=== PATIENT | female | born 1945 | race Caucasian/White ===

== ENCOUNTER 2016-07-12 19:49 | Observation (INO) ==
[2016-07-12] MEDS ORDERED: Aspirin 81 MG TAB.CHEW PO ONE (19:51)
[2016-07-12 20:11] LABS: Basophils # 0.1 K/mcL (0.0-0.2); Basophils % 1.1 %; Eosinophils # 0.3 K/mcL (0.0-0.6); Eosinophils % 3.1 %; Hematocrit 40.8 % (35.3-44.9); Hemoglobin 13.5 g/dL (11.5-15.4); Immature Granulocytes % 0.2 % (0-4); Lymphocytes # 1.3 K/mcL (0.6-4.6); Lymphocytes % 14.6 %; Mean Corpuscular HGB Conc 33.1 g/dL (31.6-35.5); Mean Corpuscular Volume 87.6 fL (83.0-100.0); Mean Platelet Volume 11.2 fL (9.4-12.4); Monocytes # 0.7 K/mcL (0.0-1.3); Monocytes % 7.8 %; Neutrophils # 6.5 K/mcL (1.6-8.9); Platelet Count 228 K/mcL (140-400); Red Blood Count 4.66 M/mcL (3.82-4.97); Red Cell Distribution Width 14.7 % (11.5-14.5); Segmented Neutrophils % 73.2 %
[2016-07-12 20:28] LABS: Calcium 9.7 mg/dL (8.6-10.8); Potassium 3.7 mEq/L (3.5-4.5)
--- NOTE | 2016-07-12 20:35 | Emergency Department Note ---
Disposition Clinical Impression: Chest pain Disposition: Admitted As Inpatient Condition: Fair Time of Disposition: 22:05 (hitesh godinez) Chest Pain HPI - General Chief Complaint: ED Chest Pain Stated Complaint: LEFT SIDED CHEST PAIN Time Seen by Provider: 07/12/16 19:51 Source: patient Mode of arrival: ambulatory Limitations: no limitations Vital Signs Reviewed: Yes Nursing Notes Reviewed: Yes - History of Present Illness HPI Narrative: Comes in complaining of 2 complaints 1 she had a headache muscle spasm and tension in the neck but #2 that she also has intermittent chest pain with activity denies any blurred vision double vision denies any syncope or diaphoresis nurse's notes have been reviewed patient presents to emergency room is having intermittent chest pain worse with activities as a radiation up into the neck or jaw she states that she has had no nausea vomiting or diaphoresis in addition to this she has been having a headache it has been going on for a couple of days states that she has had no blurred vision or double vision patient states that his occipital radiates into the back of her neck states that the throbbing type headache is not the worst headache of her life states like her typical when she was having elevated blood pressure episodes patient's had multiple Says she does not have a history of an aneurysm Pt complaint: chest pain Onset (ago): week(s) (1-2) Duration: intermittent Onset: during rest, during exertion, after eating, awoke with symptoms Pain Location: substernal Severity: moderate Severity scale (1-10): 7 (headache) Quality: aching Pain Radiation: none Improves with: nothing Worsens with: exertion, inspiration, palpation Associated symptoms: Reports: nausea. Denies: vomiting, diaphoresis, dyspnea, sense of impending doom, syncope, palpitations, fever, cough, leg swelling Treatments prior to arrival chest pain: aspirin, oxygen - Related Data Home Medications Medication Instructions Recorded Confirmed Albuterol Sulfate [Albuterol 2 puff IH QID PRN 11/10/14 07/12/16 Inhaler] Diazepam [Valium] 10 mg PO TID PRN 11/10/14 07/12/16 Omeprazole [PriLOSEC] 20 mg PO DAILY 11/10/14 07/12/16 Aspirin 81 mg PO DAILY 12/11/14 07/12/16 OxyCODONE/APAP 7.5/325 [Percocet 1 each PO Q6H 07/22/15 07/12/16 7.5/325 MG] Amlodipine [Norvasc] 10 mg PO DAILY 01/12/16 07/12/16 Previous Rx's Medication Instructions Recorded Albuterol Neb [Proventil Neb] 2.5 mg IH Q4HR PRN #20 vial.neb 12/27/15 PredniSONE 20 mg PO DAILY #18 tablet 01/12/16 Albuterol Sulfate [Albuterol 2 puff IH Q6HR PRN #1 hfa.aer.ad 04/27/16 Inhaler] HYDROcodone BIT/Homatropine LQ 5 mg PO Q6H PRN #120 ml 04/30/16 [Hycodan Syrup] Allergies Allergy/AdvReac Type Severity Reaction Status Date / Time nalbuphine [From Nubain] AdvReac Anxiety Verified 07/12/16 20:02 promethazine [From Phenergan] AdvReac Anxiety Verified 07/12/16 20:02 All systems ED: reviewed and negative except as stated. Constitutional: Denies: fever, chills, weakness Eyes: Denies: eye pain, eye discharge ENT ED: Denies: ear pain, throat pain, dental pain Cardiovascular: Reports: chest pain. Denies: palpitations, dyspnea on exertion Respiratory: Reports: cough, sputum production. Denies: dyspnea, wheezes Gastrointestinal: Denies: abdominal pain, nausea, vomiting Genitourinary: Denies: urgency, dysuria, frequency Musculoskeletal: Reports: neck pain Integumentary: Denies: abrasion, lesions Neurological: Reports: headache Psychiatric: Denies: anxiety Endocrine: Denies: fatigue Hematological/Lymphatic: Denies: easy bruising Allergic/Immunologic: Denies: urticaria Chest Pain PMH - Past Medical History Medical history: Reports: COPD, CVA, GERD, hyperlipidemia, hypertension, renal disease, TIA Surgical history: Reports: cholecystectomy, hysterectomy Psychiatric history: Reports: anxiety, depression RIDES ATTENDANT history: Reports: no RIDES ATTENDANT history - Social History Smoking Status: Current every day smoker Alcohol use: Reports: none Drug use: Reports: none Physical Exam - General Limitations: no limitations General appearance: alert, in no apparent distress, anxious - Head Head exam: atraumatic, normocephalic, normal inspection - Eye Eye exam: Present: normal appearance, PERRL, EOMI - ENT ENT exam: normal exam, normal oropharynx, mucous membranes moist, normal external ear exam - Neck Neck exam: Present: normal inspection, full ROM, trachea midline. Absent: meningismus - Chest Chest inspection: Present: normal inspection, symmetric chest wall rise - Respiratory Respiratory exam: Present: normal lung sounds bilaterally, wheezes (faint) - Cardiovascular Cardiovascular exam: Present: regular rate, normal rhythm, normal heart sounds - Abdominal Exam Abdominal exam: Present: soft, Non-Tender, normal bowel sounds. Absent: mass, pulsatile mass - Extremities Exam Extremities exam: Present: normal inspection, full ROM, normal capillary refill. Absent: tenderness, joint swelling - Expanded Lower Extremity Exam Neurovascular/Tendon exam: Present: normal capillary refill, normal fine/light touch Gait: observed and normal - Back Exam Back exam: Present: normal inspection, full ROM, muscle spasm, paraspinal tenderness. Absent: tenderness, vertebral tenderness - Neurological Exam Neurological exam: Present: alert, oriented X3, CN II-XII intact - Psychiatric Psychiatric exam: Present: anxious - Skin Skin exam: Present: warm, dry, intact, normal color Course Course Narrative: Patient is seen and examined patient was given a pain shot for her headache and actually stated that the pain was just there to be a nuisance but she rated as a 7 after having an injection patient is resting comfortably she is not coughing or wheezing she is having no difficulty swallowing she lists Nubain and promethazine as an allergy but she has had these in the past for her headaches and was okay with receiving those today as a result allergy is probably more was an adverse reaction at one time but she has had no reaction or symptomatology with that at this time patient admitted for observation as resulting intermittent chest pain with her history of hypertensive disease Vital Signs Temperature 98.7 F 07/12/16 20:13 Pulse Rate 95 07/12/16 20:13 Respiratory Rate 20 07/12/16 20:13 Blood Pressure 133/103 07/12/16 20:13 O2 Sat by Pulse Oximetry 96 07/12/16 20:13 Temperature 98.7 F 07/12/16 20:13 Pulse Rate 88 07/12/16 21:49 Respiratory Rate 28 07/12/16 21:49 Blood Pressure 133/97 07/12/16 21:49 O2 Sat by Pulse Oximetry 94 07/12/16 21:49 Oxygen Delivery Oxygen Delivery Room Air Chest Pain - MDM Narrative Medical decision making narrative: HTN emergency /crisis copd migraine chest pain angina - Differential Diagnosis Likely: unstable angina pectoris, atypical chest pain, chest pain - Lab Data Lab results reviewed: Yes I reviewed the patient's lab results. Result diagrams: 07/12/16 20:03 07/12/16 20:03 Lab Results 07/12/16 07/12/16 07/12/16 Range/Units 20:03 20:03 20:03 WBC 8.9 (4.3-11.1) K/mcL RBC 4.66 (3.82-4.97) M/mcL Hgb 13.5 (11.5-15.4) g/dL Hct 40.8 (35.3-44.9) % MCV 87.6 (83.0-100.0) fL MCH 29.0 (28.0-33.3) pg MCHC 33.1 (31.6-35.5) g/dL RDW 14.7 H (11.5-14.5) % Plt Count 228 (140-400) K/mcL MPV 11.2 (9.4-12.4) fL Immature Gran % 0.2 (0-4) % Seg Neutrophils % 73.2 % Lymphocytes % 14.6 % Monocytes % 7.8 % Eosinophils % 3.1 % Basophils % 1.1 % Neutrophils # 6.5 (1.6-8.9) K/mcL Lymphocytes # 1.3 (0.6-4.6) K/mcL Monocytes # 0.7 (0.0-1.3) K/mcL Eosinophils # 0.3 (0.0-0.6) K/mcL Basophils # 0.1 (0.0-0.2) K/mcL Sodium 145 (136-145) mEq/L Potassium 3.7 (3.5-4.5) mEq/L Chloride 108 (98-109) mEq/L Carbon Dioxide 24 (19-29) mEq/L BUN 17 (7-20) mg/dL Creatinine 1.21 H (0.57-1.11) mg/dL Est GFR ( Amer) 53 L (> 60) Est GFR (Non-Af Amer) 44 L (> 60) BUN/Creatinine Ratio 14 (6-26) Glucose 103 H (70-99) mg/dL Calculated Osmolality 302 H (280-300) Calcium 9.7 (8.6-10.8) mg/dL Troponin I 0.01 (0-0.03) ng/mL - Radiology Data Radiology results reviewed: Yes I reviewed the patient's radiology results. ITS Impressions Chest X-Ray 07/12/16 19:51 IMPRESSION: No evidence of acute cardiopulmonary disease. D/ / Gabriel Caballero MD / Gabriel Caballero MD Interpreting Provider: Gabriel Caballero MD - EKG Data EKG attestation: Yes I reviewed and interpreted this EKG. EKG results narrative: ITS Impressions Chest X-Ray 07/12/16 19:51 IMPRESSION: No evidence of acute cardiopulmonary disease. D/ / Gabriel Caballero MD / Gabriel Caballero MD Interpreting Provider: Gabriel Caballero MD Heart Score - Score History: Slightly Suspicious EKG: Non Specific repolarisation Disturbance Age: Greater than 65 Risk Factors: 1-2 risk factors Troponin: Less than normal limit HEART Score Total: 4 Critical Care Time Critical Care Time: No
[2016-07-12] MEDS ORDERED: Orphenadrine 60 MG/2 ML VIAL IM ONE (21:32)
[2016-07-12] MEDS ORDERED: *HR* Nalbuphine 20 MG/ML AMPUL IM STA (21:32)
[2016-07-12] MEDS ORDERED: *HR* Promethazine 25 MG/ML VIAL IVP ONE (21:32)
[2016-07-12] MEDS ORDERED: HYDROcodone BIT/Homatropine LQ 5 MG/5 ML UDC PO PRN (23:02)
[2016-07-12] MEDS ORDERED: Naloxone 0.4 MG/ML INJ IVP PRN (23:02)
[2016-07-12] MEDS ORDERED: Ondansetron ODT 4 MG TAB.RAPDIS SL PRN (23:02)
[2016-07-12] MEDS: *HR* OxyCODONE/APAP 7.5/325 TABLET PO SCH (23:35)
[2016-07-12] MEDS: Albuterol 2.5 MG/3 ML NEBULIZER IH SCH ×3 (23:56→23:58)
[2016-07-13 02:27] LABS: INR 1.1; Prothrombin Time 11.9 Seconds (9.4-12.1)
[2016-07-13 02:29] LABS: Activated Partial Thrombo Time 31.1 Seconds (26.0-36.0)
[2016-07-13 02:37] LABS: Calcium 9.5 mg/dL (8.6-10.8); Potassium 3.7 mEq/L (3.5-4.5)
[2016-07-13] MEDS: Albuterol 2.5 MG/3 ML NEBULIZER IH SCH ×4 (03:46→13:00)
[2016-07-13] MEDS: *HR* OxyCODONE/APAP 7.5/325 TABLET PO SCH ×2 (05:37→13:08)
--- NOTE | 2016-07-13 07:10 | Electrocardiograph Report ---
[address] [address] Test Date: 2016-07-12 Pat Name: Eleanor Chung Department: [id number] Room: [facility] Gender: F Transport Coordinator: [id number] : 1945 Requested By: Anthony Harden Order Number: [id number] Reading MD: Hugo Weiss MD Measurements Intervals Adams Rate: 93 P: 54 ND: 168 QRS: -23 QRSD: 88 T: 78 QT: 366 QTc: 417 Interpretive Statements SINUS RHYTHM BORDERLINE LEFT AXIS DEVIATION Electronically Signed On 07-13-2016 7:08:25 EDT by Hugo Weiss MD
[2016-07-13] MEDS ORDERED: Aspirin 81 MG TAB.CHEW PO SCH (09:00)
[2016-07-13] MEDS ORDERED: PredniSONE 20 MG TABLET PO SCH (09:00)
--- NOTE | 2016-07-13 11:00 | Internal Med History&Physical ---
Date of Encounter: 07/13/16 Time of Encounter: 10:30 Assessment and Plan (1) Chest pain Current visit: Yes Status: Acute Doubt cardiac origin. Repeat troponins have been ordered through emergency room. I will order a d-dimer. Further workup will be done as needed. Qualifiers: Chest pain type: unspecified Qualified Code(s): R07.9 - Chest pain, unspecified (2) CKD (chronic kidney disease) stage 3, GFR 30-59 ml/min Current visit: Yes Status: Acute Renal indices are stable. (3) HTN (hypertension) Current visit: No Status: Chronic Blood pressure is improved significantly since emergency room. Continue Norvasc. Qualifiers: Hypertension type: essential hypertension Qualified Code(s): I10 - Essential (primary) hypertension (4) Lung nodule < 6cm on CT Current visit: No Status: Acute She had a 5 mm right upper lobe nodule seen on January [address] in 6 months was recommended. Internal Medicine - H&P: HPI Chief complaint: Chest pain Admitted From: Home Plans for Post Hospital Care: Home History of present illness: Ms. Chung is a 71 year old female who came to emergency room stating she had sudden onset of chest pain with dyspnea while doing light work at home. She reports she was raising up from a bent position and had the symptoms abruptly occur along with feeling lightheaded. She sat down to avoid falling. She took 5 baby aspirin for the chest pain with minimal relief. She later took a dose of Percocet as scheduled but the pain persisted. She came to emergency room and was evaluated and was admitted to [facility] floor for ongoing care needs. She describes the pain at level 8-9/10 at onset. There was no cough but significant dyspnea as per above. She denies other symptoms. She reports she had a previous similar pain intermittently over the past 2 years that was less severe. Her most recent episode was approximately 6 months ago. Her cardiovascular history is significant for hypertension. She had an echocardiogram January 2013 with LVEF of 60-65% and moderate diastolic dysfunction. There was mild to moderate TR but no other significant valvular abnormalities. She is uncertain if she has had an IA. She denies DVT or pulmonary embolus. She has Regadenoson stress test 02/22/2016 which showed no EKG or perfusion evidence of ischemia or infarct. The LVEF was greater than 70% . Past Med Surg Social Fam HX - Past Medical History Medical history: COPD, CVA, GERD, hyperlipidemia, hypertension, renal disease, TIA Psychiatric history: anxiety, depression - Past Surgical History Surgical History: cholecystectomy, hysterectomy - Social History Smoking Status: Current every day smoker Packs per day: half a pack Smokeless Tobacco Status: No Alcohol use: none Drug use: none - Family History Mother Adopted: No Family Member Ethnicity: Non- Living Status: Hx Family Cardiac Disorders: Yes (IA) Hx Family Respiratory Disorders: No Hx Family Cancer: Yes (Uterine cancer) Hx Family GI Disorders: Yes (Acid Reflux) Hx Family Endocrine Disorder: Yes (DM) Hx Family Neuromuscular Disorders: No Hx Family Neurologic Disorders: No Hx Family HEENT Disorders: No Hx Family Autoimmune Disorders: No Internal Medicine - H&P: Meds Albuterol Sulfate [Albuterol Inhaler] 2 puff IH QID PRN 11/10/14 [History] Diazepam [Valium] 10 mg PO TID PRN 11/10/14 [History] Omeprazole [PriLOSEC] 20 mg PO DAILY 11/10/14 [History] Aspirin 81 mg PO DAILY 12/11/14 [History] OxyCODONE/APAP 7.5/325 [Percocet 7.5/325 MG] 1 each PO Q6H 07/22/15 [History] Albuterol Neb [Proventil Neb] 2.5 mg IH Q4HR PRN #20 vial.neb 12/27/15 [Rx] Amlodipine [Norvasc] 10 mg PO DAILY 01/12/16 [History] PredniSONE 20 mg PO DAILY #18 tablet 01/12/16 [Rx] Albuterol Sulfate [Albuterol Inhaler] 2 puff IH Q6HR PRN #1 hfa.aer.ad 04/27/16 [Rx] HYDROcodone BIT/Homatropine LQ [Hycodan Syrup] 5 mg PO Q6H PRN #120 ml 04/30/16 [Rx] Allergies nalbuphine [From Nubain] Adverse Reaction (Verified 07/12/16 20:02) Anxiety promethazine [From Phenergan] Adverse Reaction (Verified 07/12/16 20:02) Anxiety All Systems PM: A 10-system review of systems was performed and is negative for pertinent findings except as documented above in the HPI. Review of systems: Gen.: Her weight has increased from 89.811 kg at September 2014 [facility] hospitalization to 96.615 kg at present. Cardiovascular: As per history of present illness Respiratory: She has smoked since age 11 up to 2 packs per day. She has not had PFTs and does not wear home oxygen and has not been tested for sleep apnea. GI: She has had GERD and cholecystectomy. She denies disorders with her liver or exocrine pancreas. : She denies hematuria dysuria or kidney stones. She has CKD stage III but has not seen a full service supervisor in over a year Neurologic: She claims she has had multiple lacunar strokes in the past with earlier ones causing temporary right leg impairment that is now improved. She does not typically use a cane or walker. She denies seizures Endocrine: She was diagnosed with DM 2 in the past but states it is now diet- controlled. She has hyperlipidemia but no known thyroid disease Hematology/oncology: She denies blood disorders cancers or anemia Psychiatric: She has anxiety and depression but no other mental health issues. - Constitutional Vitals: Temp Pulse Resp BP Pulse Ox 98.3 F 99 20 109/61 94 07/13/16 06:34 07/13/16 06:34 07/13/16 08:34 07/13/16 06:34 07/13/16 08:34 Exam: General: She is a well-developed well-nourished female who appears in no acute distress at present time HEENT: Head is atraumatic and normocephalic. Eyes: EOMI. There is no scleral icterus. Mouth: Mucosa is moist. Neck: Supple and nontender. There is no thyromegaly or adenopathy noted. Heart: Regular without murmurs gallops or ectopics Chest: She is minimally tender chest wall to palpation. She states compression of the chest wall does not reproduce the pain she had at home Lungs: Clear to auscultation in all eduardo Abdomen: Soft and nontender. No masses or guarding are noted. Extremities: Dorsalis pedis and posttibial pulses are 1-2 over 2 bilaterally. Her lower legs are wrapped in gauze which I did not unwrap. She has psoriasis on her left forearm. She reports she has psoriasis on her legs under the gauze wrap. Neurologic: Mental status: She is talkative and a good historian. Cranial nerves: Smile is symmetric. Forehead wrinkles bilaterally. Tongue protrudes midline. EOMI. Motor: There is no pronator drift. Cerebellar: Finger to nose is intact bilaterally. Skin: Warm and dry. She has psoriasis as described above. Internal Med - H&P Results - Labs CBC & Chem 7: 07/12/16 20:03 07/13/16 02:10 Labs: BMP 07/13/16 02:10 Sodium 146 H Potassium 3.7 Chloride 109 Carbon Dioxide 24 BUN 21 H Creatinine 1.20 H Glucose 152 H Calcium 9.5 Cardiac Enzymes 07/13/16 07/13/16 Range/Units 02:10 08:15 Troponin I 0.01 0.01 (0-0.03) ng/mL - VTE Documentation of Mechanical Device: Intermittent pneumatic compression device
[2016-07-13] MEDS ORDERED: Nicotine 21 MG PATCH.TD24 TD SCH (11:30)
[2016-07-13 14:10] VITALS: BP 101/62
--- NOTE | 2016-07-13 14:19 | Discharge Summary ---
Date of Encounter: 07/13/16 Time of Encounter: 14:10 - Discharge Diagnosis (1) Chest pain Priority: Primary Status: Acute Qualifiers: Chest pain type: unspecified Qualified Code(s): R07.9 - Chest pain, unspecified (2) CKD (chronic kidney disease) stage 3, GFR 30-59 ml/min Priority: Secondary Status: Acute (3) HTN (hypertension) Priority: Secondary Status: Chronic Qualifiers: Hypertension type: essential hypertension Qualified Code(s): I10 - Essential (primary) hypertension (4) Lung nodule < 6cm on CT Priority: Secondary Status: Acute - Discharge Medications Home Medications: Albuterol Sulfate [Albuterol Inhaler] 2 puff IH QID PRN 11/10/14 [History] Diazepam [Valium] 10 mg PO TID PRN 11/10/14 [History] Omeprazole [PriLOSEC] 20 mg PO DAILY 11/10/14 [History] Aspirin 81 mg PO DAILY 12/11/14 [History] OxyCODONE/APAP 7.5/325 [Percocet 7.5/325 MG] 1 each PO Q6H 07/22/15 [History] Albuterol Neb [Proventil Neb] 2.5 mg IH Q4HR PRN #20 vial.neb 12/27/15 [Rx] Amlodipine [Norvasc] 10 mg PO DAILY 01/12/16 [History] PredniSONE 20 mg PO DAILY #18 tablet 01/12/16 [Rx] Albuterol Sulfate [Albuterol Inhaler] 2 puff IH Q6HR PRN #1 hfa.aer.ad 04/27/16 [Rx] HYDROcodone BIT/Homatropine LQ [Hycodan Syrup] 5 mg PO Q6H PRN #120 ml 04/30/16 [Rx] Allergies/Adverse Reactions: Allergies nalbuphine [From Nubain] Adverse Reaction (Verified 07/12/16 20:02) Anxiety promethazine [From Phenergan] Adverse Reaction (Verified 07/12/16 20:02) Anxiety Procedures/tests Complete & Pending: Procedures Performed prior 72 hours Category Date Time Status CT chest wo con [CT] Routine Cat Scan 07/13/16 12:28 Completed Date of admission: 07/12/16 22:06 Primary care physician: Venessa Vaughn - Patient Status Disposition: Home, Self-Care Condition: Fair Functional capacity at discharge: independent ambulation Overall status at discharge: patient is progressing back to baseline - Discharge Instructions Follow Up With: Venessa Vaughn [Primary Care Provider] - - Diet and Activity Activity: resume usual activities as tolerated Diet: advance to your usual diet Hospital course: Ms. Chung is a 71 year old female who came to emergency room stating she had sudden onset of chest pain with dyspnea while doing light work at home. She reports she was raising up from a bent position and had the symptoms abruptly occur along with feeling lightheaded. She sat down to avoid falling. She took 5 baby aspirin for the chest pain with minimal relief. She later took a dose of Percocet as scheduled but the pain persisted. She came to emergency room and was evaluated and was admitted to [facility] for ongoing care needs. Initial orders were written by the emergency room physician. I saw her on July 13 and performed a history and physical. Repeat cardiac enzymes showed no evidence of myocardial damage. A d-dimer was drawn with result of 624 which is within age-adjusted normal. I felt it was low likelihood she had DVT/PE. The etiology of her chest pain was not determined with certainty. A noncontrast chest CT was done to follow-up on previously seen right upper lobe nodule on a January [address] The nodule was unchanged at [address] was recommended in 12 months. There was no other significant pathology found on chest CT. She felt stable for discharge home which I felt was reasonable. She will follow with her PCP within one week. I encouraged her to discontinue smoking. Room air oximetry will be checked prior to discharge on a 6 minute walk. - Time Spent with Patient Total time spent providing and/or coordinating discharge services: - Constitutional Vitals: Temp Pulse Resp BP Pulse Ox 98.5 F 86 24 101/62 93 07/13/16 14:05 07/13/16 14:05 07/13/16 14:05 07/13/16 14:05 07/13/16 14:05 - VTE Documentation of Mechanical Device: Intermittent pneumatic compression device
== END 2016-07-13 15:05 | disposition home or self-care (01) ==
LOC: INPPIK 19:49 → EMEROOPIK 19:49 → INPPIK 23:00
PROVIDERS: ADMIT Internal Medicine; ATTEND Internal Medicine

== ENCOUNTER 2017-03-23 15:43 | Observation (INO) ==
[2017-03-23] MEDS ORDERED: Ketorolac 30 MG/ML VIAL IVP ONE (16:09)
[2017-03-23] MEDS ORDERED: 0.9 % Sodium Chloride 1,000 ML IVC ONE (16:09)
[2017-03-23] MEDS ORDERED: Ondansetron 4 MG/2 ML VIAL IVP ONE (16:09)
--- NOTE | 2017-03-23 16:12 | Emergency Department Note ---
Disposition Clinical Impression: COPD exacerbation, Influenza B Disposition: Admitted As Inpatient Time of Disposition: 19:00 URI/Sore Throat HPI - General Chief Complaint: ED Arrhythmia/Palpitations Stated Complaint: heart racing/ chest pressure / weak /N/V/D Time Seen by Provider: 03/23/17 16:05 Source: patient Mode of arrival: ambulatory Limitations: no limitations Nursing Notes Reviewed: Yes Vital Signs Reviewed: Yes - History of Present Illness HPI Narrative: 72-year-old female has been sick for 3-4 days. She states she has had a cough with chest discomfort. She is aching all over. She was seen here 3 days ago and was diagnosed with bronchitis/upper respiratory tract infection. She states that the medicine she was put on gave her diarrhea, she has had multiple episodes of diarrhea since being discharged. She has been nauseated, she vomited once or twice. She continues to cough. She feels sore all over, achy. No documented fever. At time she feels like her heart racing. Pt Subjective Complaint: cough, flu symptoms Onset (ago): day(s) Duration: constant (3) Severity: severe Improves with: nothing Worsens with: nothing If sputum, description: other Context: multiple patients with similar complaints (None) Associated symptoms: Reports: denies other symptoms Treatments prior to arrival: other healthcare encounter for this problem - Related Data Home Medications Medication Instructions Recorded Confirmed Omeprazole [PriLOSEC] 20 mg PO DAILY 11/10/14 03/23/17 Aspirin 81 mg PO DAILY 12/11/14 03/23/17 OxyCODONE/APAP 7.5/325 [Percocet 1 each PO Q6H 07/22/15 03/23/17 7.5/325 MG] amLODIPine [Norvasc] 10 mg PO DAILY 01/12/16 03/23/17 Previous Rx's Medication Instructions Recorded Albuterol Neb [Proventil Neb] 2.5 mg IH Q4HR PRN #20 vial.neb 12/27/15 Albuterol Sulfate [Albuterol 2 puff IH Q6HR PRN #1 hfa.aer.ad 04/27/16 Inhaler] Amoxicillin/Clavulanate [Augmentin] 875 mg PO BIDWM #20 tablet 03/21/17 Brompheniramine/Pseudoephed/Dm 5 ml PO Q4-6H PRN #120 syrup 03/21/17 [Bromfed Dm Cough Syrup] Allergies Allergy/AdvReac Type Severity Reaction Status Date / Time No Known Allergies Allergy Verified 03/23/17 15:44 All systems ED: reviewed and negative except as stated. Constitutional: Reports: chills. Denies: fever Eyes: Denies: eye discharge ENT ED: Denies: ear pain, throat pain Cardiovascular: Reports: chest pain Respiratory: Reports: cough (With coughing), dyspnea. Denies: sputum production Gastrointestinal: Reports: nausea, vomiting, diarrhea. Denies: abdominal pain Genitourinary: Denies: urgency, dysuria, frequency Musculoskeletal: Reports: arthralgia, myalgia. Denies: back pain Integumentary: Denies: rash Neurological: Reports: weakness. Denies: numbness, paresthesias URI PMH - Past Medical History Medical history: Reports: COPD, CVA, GERD, hyperlipidemia, hypertension, renal disease, TIA, other Surgical history: Reports: cholecystectomy, hysterectomy Psychiatric history: Reports: anxiety, depression ENVIRONMENTAL FIELD PROFESSIONAL history: Reports: no ENVIRONMENTAL FIELD PROFESSIONAL history - Social History Smoking Status: Current every day smoker Alcohol use: Reports: none Drug use: Reports: none Physical Exam - General Limitations: no limitations General appearance: alert, anxious - Head Head exam: atraumatic, normocephalic - Eye Eye exam: Present: PERRL, EOMI. Absent: scleral icterus, conjunctival injection - ENT ENT exam: normal oropharynx, mucous membranes moist, TM's normal bilaterally - Neck Neck exam: Present: normal inspection, full ROM, trachea midline. Absent: tenderness, lymphadenopathy - Chest Chest inspection: Present: normal inspection, symmetric chest wall rise - Respiratory Respiratory exam: Present: wheezes (Rare expiratory). Absent: respiratory distress, accessory muscle use, prolonged expiratory phase - Cardiovascular Cardiovascular exam: Present: regular rate, normal rhythm, normal heart sounds - Abdominal Exam Abdominal exam: Present: soft, Non-Tender, normal bowel sounds. Absent: organomegaly, mass - Extremities Exam Extremities exam: Present: normal inspection, full ROM, normal capillary refill. Absent: pedal edema, calf tenderness - Back Exam Back exam: Absent: CVA tenderness (R), CVA tenderness (L) - Neurological Exam Neurological exam: Present: alert, oriented X3. Absent: motor sensory deficit - Psychiatric Psychiatric exam: Present: normal affect, normal mood - Skin Skin exam: Present: warm, dry, intact, normal color. Absent: cyanosis, diaphoresis Course - Reevaluation(s) Reevaluation #1: Discussed with Dr. Ness. Accepts admission. Time: 18:00 Vital Signs Temperature 98.0 F 03/23/17 15:46 Pulse Rate 100 03/23/17 15:46 Respiratory Rate 20 03/23/17 15:46 Blood Pressure 154/90 03/23/17 15:46 O2 Sat by Pulse Oximetry 98 03/23/17 15:46 Temperature 98.7 F 03/23/17 18:53 Pulse Rate 106 03/23/17 18:53 Respiratory Rate 24 03/23/17 18:53 Blood Pressure 118/78 03/23/17 18:53 O2 Sat by Pulse Oximetry 91 03/23/17 18:53 Oxygen Delivery Oxygen Delivery Nasal Cannula Upper Respiratory Infection - MDM Narrative Medical decision making narrative: Patient has a COPD exacerbation associated with influenza B. Her O2 saturations are dropping down to 88-89% especially with paroxysms of coughing. She has been given Solu-Medrol and hand-held nebulizers. No evidence of pneumonia on her chest x-ray. - Differential Diagnosis Differential Diagnosis: Likely: upper respiratory infection, sinusitis, other viral infection, bronchitis, pharyngitis, pneumonia - Lab Data Lab results reviewed: Yes I reviewed the patient's lab results. Result diagrams: 03/23/17 16:16 03/23/17 16:16 Lab Results 03/23/17 03/23/17 03/23/17 Range/Units 16:16 16:16 16:16 WBC 4.6 (4.3-11.1) K/mcL RBC 4.83 (3.82-4.97) M/mcL Hgb 14.5 (11.5-15.4) g/dL Hct 42.4 (35.3-44.9) % MCV 87.8 (83.0-100.0) fL MCH 30.0 (28.0-33.3) pg MCHC 34.2 (31.6-35.5) g/dL RDW 13.7 (11.5-14.5) % Plt Count 160 (140-400) K/mcL MPV 11.8 (9.4-12.4) fL Immature Gran % 0.4 (0-4) % Seg Neutrophils % 74.1 % Lymphocytes % 13.2 % Monocytes % 10.1 % Eosinophils % 1.5 % Basophils % 0.7 % Neutrophils # 3.4 (1.6-8.9) K/mcL Lymphocytes # 0.6 (0.6-4.6) K/mcL Monocytes # 0.5 (0.0-1.3) K/mcL Eosinophils # 0.1 (0.0-0.6) K/mcL Basophils # 0.0 (0.0-0.2) K/mcL Sodium 142 (136-145) mEq/L Potassium 4.4 (3.5-4.5) mEq/L Chloride 103 (98-109) mEq/L Carbon Dioxide 27 (19-29) mEq/L BUN 12 (7-20) mg/dL Creatinine 1.11 (0.57-1.11) mg/dL Est GFR ( Amer) 59 L (> 60) Est GFR (Non-Af Amer) 48 L (> 60) BUN/Creatinine Ratio 11 (6-26) Glucose 103 H (70-99) mg/dL Calculated Osmolality 294 (280-300) Calcium 9.3 (8.6-10.8) mg/dL Total Bilirubin 0.4 (0.2-1.2) mg/dL AST 31 (5-34) Units/L ALT 21 (0-55) Units/L Alkaline Phosphatase 75 (38-126) Units/L Troponin I 0.01 (0-0.03) ng/mL B-Natriuretic Peptide (0-100) pg/mL Serum Total Protein 7.7 (6.0-8.3) g/dL Albumin 3.9 (3.5-5.0) g/dL Globulin 3.8 H (2.4-3.5) g/dL Albumin/Globulin Ratio 1.0 L (1.1-2.2) Urine Color (Yellow) Urine Clarity (Clear) Urine pH (5.0-8.0) pH Units Ur Specific [place] (1.010-1.025) Urine Protein (Neg-Trace) mg/dL Urine Glucose (UA) (Normal) mg/dL Urine Ketones (Negative) mg/dL Urine Blood (Negative) Urine Nitrite (Negative) Urine Bilirubin (Negative) Urine Urobilinogen (Normal) mg/dL Ur Leukocyte Esterase (Negative) Urine Microscopic WBC (0-3) per hpf Ur Squamous Epith Cells (None-Few) per lpf Granular Casts (None Seen) per lpf Ur Culture Indicated? (NO) 03/23/17 03/23/17 Range/Units 16:16 16:30 WBC (4.3-11.1) K/mcL RBC (3.82-4.97) M/mcL Hgb (11.5-15.4) g/dL Hct (35.3-44.9) % MCV (83.0-100.0) fL MCH (28.0-33.3) pg MCHC (31.6-35.5) g/dL RDW (11.5-14.5) % Plt Count (140-400) K/mcL MPV (9.4-12.4) fL Immature Gran % (0-4) % Seg Neutrophils % % Lymphocytes % % Monocytes % % Eosinophils % % Basophils % % Neutrophils # (1.6-8.9) K/mcL Lymphocytes # (0.6-4.6) K/mcL Monocytes # (0.0-1.3) K/mcL Eosinophils # (0.0-0.6) K/mcL Basophils # (0.0-0.2) K/mcL Sodium (136-145) mEq/L Potassium (3.5-4.5) mEq/L Chloride (98-109) mEq/L Carbon Dioxide (19-29) mEq/L BUN (7-20) mg/dL Creatinine (0.57-1.11) mg/dL Est GFR ( Amer) (> 60) Est GFR (Non-Af Amer) (> 60) BUN/Creatinine Ratio (6-26) Glucose (70-99) mg/dL Calculated Osmolality (280-300) Calcium (8.6-10.8) mg/dL Total Bilirubin (0.2-1.2) mg/dL AST (5-34) Units/L ALT (0-55) Units/L Alkaline Phosphatase (38-126) Units/L Troponin I (0-0.03) ng/mL B-Natriuretic Peptide 16 (0-100) pg/mL Serum Total Protein (6.0-8.3) g/dL Albumin (3.5-5.0) g/dL Globulin (2.4-3.5) g/dL Albumin/Globulin Ratio (1.1-2.2) Urine Color Yellow (Yellow) Urine Clarity Slightly Cloudy A (Clear) Urine pH 5.5 (5.0-8.0) pH Units Ur Specific [place] 1.025 (1.010-1.025) Urine Protein 30 H (Neg-Trace) mg/dL Urine Glucose (UA) Normal (Normal) mg/dL Urine Ketones Trace H (Negative) mg/dL Urine Blood Negative (Negative) Urine Nitrite Negative (Negative) Urine Bilirubin Small H (Negative) Urine Urobilinogen Normal (Normal) mg/dL Ur Leukocyte Esterase Negative (Negative) Urine Microscopic WBC 0-3 (0-3) per hpf Ur Squamous Epith Cells Moderate H (None-Few) per lpf Granular Casts Few H (None Seen) per lpf Ur Culture Indicated? NO (NO) - Radiology Data Radiology results reviewed: Yes I reviewed the patient's radiology results. Impressions Chest X-Ray 03/23/17 16:09 IMPRESSION: No acute cardiopulmonary disease. D/ / Alejandro Suarez MD / Alejandro Suarez MD Interpreting Provider: Alejandro Suarez MD - EKG Data EKG attestation: Yes I reviewed and interpreted this EKG. EKG results narrative: Sinus tachycardia, rate of 112, left axis deviation, nonspecific ST-T changes. Rhythm strip shows sinus tachycardia with a rate of 112, CO interval 153 ms, QRS of 88 ms with no other ectopy as interpreted by me. Compared to tracing dated 03/21/17, no significant change other than the sinus tachycardia.
[2017-03-23 16:26] LABS: Basophils % 0.7 %; Eosinophils # 0.1 K/mcL (0.0-0.6); Eosinophils % 1.5 %; Hematocrit 42.4 % (35.3-44.9); Hemoglobin 14.5 g/dL (11.5-15.4); Immature Granulocytes % 0.4 % (0-4); Lymphocytes # 0.6 K/mcL (0.6-4.6); Lymphocytes % 13.2 %; Mean Corpuscular HGB Conc 34.2 g/dL (31.6-35.5); Mean Corpuscular Volume 87.8 fL (83.0-100.0); Mean Platelet Volume 11.8 fL (9.4-12.4); Monocytes # 0.5 K/mcL (0.0-1.3); Monocytes % 10.1 %; Neutrophils # 3.4 K/mcL (1.6-8.9); Platelet Count 160 K/mcL (140-400); Red Blood Count 4.83 M/mcL (3.82-4.97); Red Cell Distribution Width 13.7 % (11.5-14.5); Segmented Neutrophils % 74.1 %
[2017-03-23 16:42] LABS: Bilirubin,Urine Small (Negative); Blood,Urine Negative (Negative); Clarity,Urine Slightly Cloudy (Clear); Color,Urine Yellow (Yellow); Glucose,Urine (UA) Normal (Normal); Ketones,Urine Trace mg/dL (Negative); Leukocyte Esterase,Urine Negative (Negative); Nitrite,Urine Negative (Negative); PH,Urine 5.5 pH Units (5.0-8.0); Protein,Urine 30 mg/dL (Neg-Trace); Specific Gravity,Urine 1.025 (1.010-1.025); Urobilinogen,Urine Normal (Normal)
[2017-03-23 16:44] LABS: Albumin 3.9 g/dL (3.5-5.0); Bilirubin,Total 0.4 mg/dL (0.2-1.2); Calcium 9.3 mg/dL (8.6-10.8); Globulin 3.8 g/dL (2.4-3.5); Potassium 4.4 mEq/L (3.5-4.5); Total Protein 7.7 g/dL (6.0-8.3)
[2017-03-23 16:51] LABS: Granular Casts,Urine Few per lpf (None Seen); Squamous Epithelial Cell,Urine Moderate per lpf (None-Few); WBC,Urine 0-3 per hpf (0-3)
[2017-03-23] MEDS ORDERED: methylPREDNISolone 125 MG/2 ML VIAL IVP ONE (17:20)
[2017-03-23] MEDS ORDERED: Ipratropium/Albuterol Neb 3 ML IH ONE (17:20)
[2017-03-23] MEDS ORDERED: Albuterol 2.5 MG/3 ML NEBULIZER IH ONE (17:20)
[2017-03-23] MEDS ORDERED: Ondansetron 4 MG/2 ML VIAL IVP PRN (19:14)
[2017-03-23] MEDS ORDERED: Albuterol 2.5 MG/3 ML NEBULIZER IH PRN (19:14)
[2017-03-23] MEDS ORDERED: Naloxone 0.4 MG/ML INJ IVP PRN (19:14)
[2017-03-23] MEDS: 0.9 % Sodium Chloride 1,000 ML IVC SCH (20:22)
[2017-03-23] MEDS: *HR* OxyCODONE/APAP 7.5/325 TABLET PO SCH (20:22)
[2017-03-24] MEDS: methylPREDNISolone 125 MG/2 ML VIAL IVP SCH ×3 (01:33→17:10)
[2017-03-24] MEDS: *HR* OxyCODONE/APAP 7.5/325 TABLET PO SCH ×4 (01:34→19:46)
[2017-03-24] MEDS: 0.9 % Sodium Chloride 1,000 ML IVC SCH (04:38)
[2017-03-24] MEDS: Oseltamivir Phosphate 30 MG CAPSULE PO SCH ×2 (09:46→19:46)
[2017-03-24] MEDS: amLODIPine 5 MG TABLET PO SCH (09:47)
[2017-03-24] MEDS: Aspirin 81 MG TAB.CHEW PO SCH (09:47)
--- NOTE | 2017-03-24 11:16 | Internal Med History&Physical ---
Date of Encounter: 03/24/17 Time of Encounter: 10:45 Assessment and Plan (1) Influenza B Current visit: Yes Status: Acute She has been started on Tamiflu. Antibiotics will not be given at this time. Room air oximetry will be checked in a.m. (2) HTN (hypertension) Current visit: No Status: Chronic Continue Norvasc. Qualifiers: Hypertension type: essential hypertension Qualified Code(s): I10 - Essential (primary) hypertension (3) CKD (chronic kidney disease) stage 3, GFR 30-59 ml/min Current visit: No Status: Acute We will monitor renal indices as needed. Internal Medicine - H&P: HPI Chief complaint: Cough and diarrhea Admitted From: Emergency Dept Plans for Post Hospital Care: Home History of present illness: Ms. Chung is a 72 year old female who came to emergency room stating she was unimproved from her respiratory/flu symptoms after being seen in the emergency room March 21 and diagnosed with URI/bronchitis. She was given antitussive agent and Augmentin. She had continued fevers and myalgias. She reported diarrhea after taking the Augmentin. She was evaluated in emergency room again and found to have influenza B. She was admitted to [facility] floor for ongoing care needs. Her respiratory history is significant for having smoked since age 11 up to 2 packs per day. She states she quit smoking approximately 3 days ago. She has not had PFTs and does not wear home oxygen has not been tested for sleep apnea. Past Med Surg Social Fam HX - Past Medical History Medical history: COPD, CVA, GERD, hyperlipidemia, hypertension, renal disease, TIA, other Psychiatric history: anxiety, depression - Past Surgical History Surgical History: cholecystectomy, hysterectomy - Social History Smoking Status: Current every day smoker Smokeless Tobacco Status: No Alcohol use: none Drug use: none - Family History Sister Hx Family Cardiac Disorders: Yes (HTN) Hx Family Endocrine Disorder: Yes (DM) Mother Adopted: No Family Member Ethnicity: Non- Living Status: Hx Family Cardiac Disorders: Yes (DC) Hx Family Respiratory Disorders: No Hx Family Cancer: Yes (Uterine cancer) Hx Family GI Disorders: Yes (Acid Reflux) Hx Family Endocrine Disorder: Yes (DM) Hx Family Neuromuscular Disorders: No Hx Family Neurologic Disorders: No Hx Family HEENT Disorders: No Hx Family Autoimmune Disorders: No Internal Medicine - H&P: Meds Omeprazole [PriLOSEC] 20 mg PO DAILY 11/10/14 [History] Aspirin 81 mg PO DAILY 12/11/14 [History] OxyCODONE/APAP 7.5/325 [Percocet 7.5/325 MG] 1 each PO Q6H 07/22/15 [History] Albuterol Neb [Proventil Neb] 2.5 mg IH Q4HR PRN #20 vial.neb 12/27/15 [Rx] amLODIPine [Norvasc] 10 mg PO DAILY 01/12/16 [History] Albuterol Sulfate [Albuterol Inhaler] 2 puff IH Q6HR PRN #1 hfa.aer.ad 04/27/16 [Rx] Amoxicillin/Clavulanate [Augmentin] 875 mg PO BIDWM #20 tablet 03/21/17 [Rx] Brompheniramine/Pseudoephed/Dm [Bromfed Dm Cough Syrup] 5 ml PO Q4-6H PRN #120 syrup 03/21/17 [Rx] 3 Allergy/AdvReac Type Severity Reaction Status Date / Time No Known Allergies Allergy Verified 03/23/17 15:44 All Systems PM: A 10-system review of systems was performed and is negative for pertinent findings except as documented above in the HPI. Review of systems: View of systems from her June 2016 [facility] hospitalization were reviewed and revised as below Gen.: Her weight has been stable at approximately 96 kg since June 2016 hospitalization. Cardiovascular: She has hypertension. She had an echocardiogram January 2013 with LVEF of 60-65% and moderate diastolic dysfunction. There was mild to moderate TR but no other significant valvular abnormalities. She is uncertain if she has had an DC. She denies DVT or pulmonary embolus. She has Regadenoson stress test 02/22/2016 which showed no EKG or perfusion evidence of ischemia or infarct. The LVEF was greater than 70%. Respiratory: As per history of present illness GI: She has had GERD and cholecystectomy. She denies disorders with her liver or exocrine pancreas. : She denies hematuria dysuria or kidney stones. She has CKD stage III but has not seen a navy airspace officer in over a year Neurologic: She claims she has had multiple lacunar strokes in the past with earlier ones causing temporary right leg impairment that is now improved. She does not typically use a cane or walker. She denies seizures Endocrine: She was diagnosed with DM 2 in the past but states it is now diet- controlled. She has hyperlipidemia but no known thyroid disease Hematology/oncology: She denies blood disorders cancers or anemia Psychiatric: She has anxiety and depression but no other mental health issues. - Constitutional Vitals: Temp Pulse Resp BP Pulse Ox 98.3 F 79 17 115/76 90 03/24/17 07:26 03/24/17 07:26 03/24/17 09:00 03/24/17 07:26 03/24/17 09:00 Exam: Gen.: She is a well-developed well-nourished female resting comfortably in bed who appears in minimal distress at present time HEENT: Head is atraumatic and normocephalic. Eyes: EOMI. There is no scleral icterus. Mouth: Mucosa is moist. Neck: Supple and nontender. There is no thyromegaly or adenopathy noted. Heart: Regular without murmurs gallops or ectopics. Lungs: No wheezes or crackles are heard. Abdomen: Soft and nontender. No masses or guarding are noted. Extremities: There is no cyanosis edema or clubbing noted. Dorsalis pedis and posttibial pulses are 1-2 over 2 bilaterally. Neurologic: Mental status: She is talkative and a good historian. Cranial nerves: Smile is symmetric. Forehead wrinkles bilaterally. Tongue protrudes midline. EOMI. Motor: There is no pronator drift. Cerebellar: Clear to nose is intact bilaterally. Skin: Warm and dry. She has a few lesions of psoriasis on her extremities. Internal Med - H&P Results - Labs CBC & Chem 7: 03/23/17 16:16 03/23/17 16:16
--- NOTE | 2017-03-24 20:02 | Electrocardiograph Report ---
[address] [place], [place] [address] Test Date: 2017-03-23 Pat Name: Eleanor Chung Department: [id number] Room: [facility] Gender: F Rails Developer: : 1945 Requested By: Jori Wilkinson Order Number: [id number] Reading MD: Hugo Weiss MD Measurements Intervals [place] Rate: 112 P: 59 SC: 153 QRS: -39 QRSD: 88 T: 69 QT: 351 QTc: 417 Interpretive Statements SINUS TACHYCARDIA MARKED LEFT AXIS DEVIATION Electronically Signed On 03-24-2017 20:01:03 EST by Hugo Weiss MD
[2017-03-25] MEDS: *HR* OxyCODONE/APAP 7.5/325 TABLET PO SCH ×2 (01:01→07:43)
[2017-03-25] MEDS: methylPREDNISolone 125 MG/2 ML VIAL IVP SCH (01:02)
[2017-03-25 06:30] VITALS: BP 118/77
[2017-03-25] MEDS: Aspirin 81 MG TAB.CHEW PO SCH (07:44)
[2017-03-25] MEDS: amLODIPine 5 MG TABLET PO SCH (07:44)
[2017-03-25] MEDS: Oseltamivir Phosphate 30 MG CAPSULE PO SCH (07:45)
--- NOTE | 2017-03-25 09:46 | Discharge Summary ---
Date of Encounter: 03/25/17 Time of Encounter: 09:35 - Discharge Diagnosis (1) Influenza B Priority: Primary Status: Acute (2) HTN (hypertension) Priority: Secondary Status: Chronic Qualifiers: Hypertension type: essential hypertension Qualified Code(s): I10 - Essential (primary) hypertension (3) CKD (chronic kidney disease) stage 3, GFR 30-59 ml/min Priority: Secondary Status: Chronic - Discharge Medications Prescriptions: Oseltamivir Phosphate [Tamiflu] 30 mg PO BID #10 capsule Home Medications: Omeprazole [PriLOSEC] 20 mg PO DAILY 11/10/14 [History] Aspirin 81 mg PO DAILY 12/11/14 [History] OxyCODONE/APAP 7.5/325 [Percocet 7.5/325 MG] 1 each PO Q6H 07/22/15 [History] Albuterol Neb [Proventil Neb] 2.5 mg IH Q4HR PRN #20 vial.neb 12/27/15 [Rx] amLODIPine [Norvasc] 10 mg PO DAILY 01/12/16 [History] Albuterol Sulfate [Albuterol Inhaler] 2 puff IH Q6HR PRN #1 hfa.aer.ad 04/27/16 [Rx] Brompheniramine/Pseudoephed/Dm [Bromfed Dm Cough Syrup] 5 ml PO Q4-6H PRN #120 syrup 03/21/17 [Rx] Oseltamivir Phosphate [Tamiflu] 30 mg PO BID #10 capsule 03/25/17 [Rx] Allergies/Adverse Reactions: 3 Allergy/AdvReac Type Severity Reaction Status Date / Time No Known Allergies Allergy Verified 03/23/17 15:44 Date of admission: 03/23/17 18:32 Primary care physician: Venessa Vaughn - Patient Status Disposition: Home, Self-Care Functional capacity at discharge: independent ambulation Overall status at discharge: patient is progressing back to baseline - Discharge Instructions Follow Up With: Venessa Vaughn [Primary Care Provider] - 1 week - Diet and Activity Activity: resume usual activities as tolerated Diet: advance to your usual diet Hospital course: Ms. Chung is a 72 year old female who came to emergency room stating she was unimproved from her respiratory/flu symptoms after being seen in the emergency room March 21 and diagnosed with URI/bronchitis. She was given antitussive agent and Augmentin. She had continued fevers and myalgias. She reported diarrhea after taking the Augmentin. She was evaluated in emergency room again and found to have influenza B. She was admitted to [facility] for ongoing care needs. Initial orders were written by the emergency room physician. I saw her on March 24 and performed a history and physical. She was started on Tamiflu. Antibiotics were not given. She had clinical improvement and felt significantly better when I saw her on March 25. She felt stable for discharge home. She will continue with Tamiflu for 5 additional days at discharge. Room air oximetry will be checked prior to discharge. I encouraged her to remain a nonsmoker. She will follow with her PCP within one week. - Time Spent with Patient Total time spent providing and/or coordinating discharge services: - Constitutional Vitals: Temp Pulse Resp BP Pulse Ox 98.5 F 80 20 118/77 95 03/25/17 06:27 03/25/17 06:27 03/25/17 06:27 03/25/17 06:27 03/25/17 06:27
== END 2017-03-25 10:45 | disposition home or self-care (01) ==
LOC: EMEROOPIK 15:43 → INPPIK 15:43
PROVIDERS: ADMIT Emergency Medicine; ATTEND Internal Medicine